=== PATIENT | female | born 1950 | race Caucasian/White ===

== ENCOUNTER 2021-09-12 11:43 | Outpatient (CLI) | payer MEDICARE | END 2021-09-12 11:44 | disposition home or self-care (01) | LOC: CSHCP 11:43 | PROVIDERS: ATTEND Internal Medicine Critical Care Medicine | DX: R06.02 Shortness of breath (principal); R94.2 Abnormal results of pulmonary function studies | CPT/HCPCS: 94010; 94726; 94729; 94760 ==